=== PATIENT | male | born 1940 | race Caucasian/White ===

== ENCOUNTER 2017-12-08 22:49 | Inpatient (IN) | payer MEDICARE, OTHER ==
[~2017-12-08] VITALS: Ht 177.8 cm; Wt 74.7 kg
[2017-12-08 23:18] LABS: BASOPHILS ABSOLUTE AUTO 0.02 K/mm3 (0.00-0.23); BASOPHILS PERCENT AUTO 0 % (0-2); EOSINOPHILS PERCENT AUTO 1 % (0-6); Hematocrit 41.8 % (37.0-53.0); Hemoglobin 14.3 g/dL (13.5-17.5); IMMATURE GRAN ABSOLUTE AUTO 0.04 K/mm3 (0.00-0.10); IMMATURE GRAN PERCENT AUTO 1 % (0-1); LYMPHOCYTES ABSOLUTE AUTO 1.16 K/mm3 (0.84-5.20); LYMPHOCYTES PERCENT AUTO 14 % (21-46); MONOCYTES ABSOLUTE AUTO 0.92 K/mm3 (0.16-1.47); MONOCYTES PERCENT AUTO 11 % (4-13); Mean Corpuscular HGB 31.6 pg (26.0-34.0); Mean Corpuscular HGB Conc 34.2 g/dL (31.5-36.5); Mean Corpuscular Volume 93 fL (80-100); Mean Platelet Volume 9.3 fL (9.1-12.4); NEUTROPHILS ABSOLUTE AUTO 6.04 K/mm3 (1.96-9.15); NEUTROPHILS PERCENT AUTO 73 % (41-73); Platelet Count 225 K/mm3 (150-400); RDW Coefficient Variation 12.4 % (11.7-14.2); RDW Standard Deviation 42.5 fL (35.1-46.3); Red Blood Cell Count 4.52 M/mm3 (4.30-5.90); White Blood Cell Count 8.28 K/mm3 (4.00-11.30)
[2017-12-08 23:47] LABS: Alanine Aminotransfer (ALT/SGP 28 U/L (12-78); Albumin, Blood 3.5 g/dL (3.4-5.0); Albumin/Globulin Ratio 0.8 (0.8-1.8); Alk Phos 78 U/L (50-136); Anion Gap 7 mmol/L (6-16); Aspartate Aminotrans (AST/SGOT 23 U/L (12-37); Bilirubin, Total 1.3 mg/dL (0.1-1.0); Blood Urea Nitrogen 12 mg/dL (8-24); Bun/Creatinine Ratio 14.7 (12.0-20.0); CO2, Blood 27 mmol/L (21-32); Calcium, Blood 8.8 mg/dL (8.5-10.1); Chloride, Blood 104 mmol/L (98-108); Creatinine, Blood 0.82 mg/dL (0.60-1.20); Globulin, Blood 4.4 g/dL (2.2-4.0); Glomerular Filtration Rate >60 (60-); Glucose, Blood 125 mg/dL (70-99); Potassium, Blood 4.1 mmol/L (3.5-5.5); Sodium, Blood 138 mmol/L (136-145); Total Protein, Blood 7.9 g/dL (6.4-8.2); Troponin I <0.015 ng/mL (0.000-0.040)
[2017-12-10] MEDS ORDERED: ASPI81CH PO (13:45)
== END 2017-12-10 14:16 | disposition home or self-care (01) | DRG 313 ==
LOC: ER 22:49 → PCU 12-09 01:57
PROVIDERS: Emergency Medicine
DX: R07.89 Other chest pain (principal); R94.2 Abnormal results of pulmonary function studies; R94.8 Abnormal results of function studies of other organs and systems; Z87.891 Personal history of nicotine dependence
CPT/HCPCS: 36415; 71046; 78452; 80053; 83880; 84484; 85025; 93005; 93010; 93017; 96374; 96375; 99285; A9500; J0280; J1885; J2270; J2405; J2785; J7030

== ENCOUNTER → 2018-10-26 | Outpatient (CLI) | payer MEDICARE, OTHER ==
[~2018-10-26] MED LIST: ASPI81CH PO
[2018-10-27 15:04] LABS: Stool Occult Bld Immuno 1 Negative (NEGATIVE)
== END | disposition home or self-care (01) ==
LOC: LAB EV 16:18
PROVIDERS: Internal Medicine Gastroenterology
DX: K57.90 Diverticulosis of intestine, part unspecified, without perforation or abscess without bleeding (principal); Z86.010 Personal history of colon polyps
CPT/HCPCS: G0328

== ENCOUNTER → 2018-10-27 | Outpatient (CLI) | payer MEDICARE, OTHER ==
[2018-10-28 14:11] LABS: Stool Occult Bld Immuno 1 Negative (NEGATIVE)
== END | disposition home or self-care (01) ==
LOC: LAB SHORT 09:30 → LAB EV 09:30
PROVIDERS: Internal Medicine Gastroenterology
DX: K57.30 Diverticulosis of large intestine without perforation or abscess without bleeding (principal); Z86.010 Personal history of colon polyps
CPT/HCPCS: 82274

== ENCOUNTER 2018-12-26 08:04 | Day surgery (SDC) | payer MEDICARE, OTHER ==
[~2018-12-26] VITALS: Ht 177.8 cm; Wt 76.4 kg
[~2018-12-26 08:04] MED LIST changes: +Aspirin EC81 MG PO; +Crestor20 MG PO
--- NOTE | 2018-12-26 10:38 | NUR ---
12/26/18 Yuliya Cee NASAL INTUBATION USED FOR CASE.
--- NOTE | 2018-12-26 14:39 | NUR ---
12/26/18 1439 Ana Yates PT RESTING IN BED, DAUGHTER AND AT BEDSIDE. PT C/O OF 6/10 PAIN, MEDICATED PER ORDER. PT TOLERATING ICE CHIPS AND SIPS OF WATER. VSS. REPORT OFF TO [facility] AND [facility].
--- NOTE | 2018-12-26 16:00 | NUR ---
PT TO ROOM 230 FROM [facility]. PT ALERT AND ORIENTED. NADN. FAMILY WITH PT. ORIENTED TO ROOM AND CALL LIGHT. IV INFUSING. DENIES NEED FOR PAIN MEDS AT THIS TIME.
--- NOTE | 2018-12-26 18:21 | NUR ---
report to margret leslie rn in [facility]. dr washington to room. aware of pt tx to [facility]. states he is going there for airway observation due to extensive trauma to lower jaw.
--- NOTE | 2018-12-26 18:44 | NUR ---
PT MOVED TO U 7.
--- NOTE | 2018-12-27 05:43 | NUR ---
SHIFT SUMMARY PT ALERT AND ORIENTED AND INDPENDENT T/O SHIFT. HE HAS SLEPT ALL NIGHT WITHOUT ANY ISSUES. HE WOKE EASILY FOR VITALS, DENIED ANY NEEDS FOR PAIN MEDS AND STATED THAT HIS SURGICAL SITE WAS SORE, BUT NOT INTOLERABLE. PT DENIED ANY UNMET NEEDS, USED HIS CALL LIGHT APPROPRIATELY AND SLEPT T/O SHIFT. PT HAS HIS BED IN THE LOWEST POSITION WITH 2X SIDE RAILS IN PLACE. CALL LIGHT IS WITHIN REACH. PT VITALS CONTINUE TO BE STABLE. HE WILL CONTINUE TO BE MONITORED UNTIL HANDOFF TO DAYSHIFT RN.
--- NOTE | 2018-12-27 09:15 | NUR ---
Assumed Care: Assumed care of pt at approx 0700. VSS. In no apparent sign of distress. VSS. In no apparent sign of distress. Pt is A&Ox4. Calls appropriately and repositions self. See shift assessment for detailed assessment. Some swelling and redness noted under tongue, but no swelling noted to the throat. Pt c/o of some pain to the throat, but denies any need for pain medications at this time. Pt currently resting in bed with call light within reach. Denies any further questions, complaints or requests at this time. Will continue to monitor.
--- NOTE | 2018-12-27 10:40 | NUR ---
Dishcarged at 1014. VSS. In no apparent sign of distress. Pt denies any further questions at time of discharge. Follow-up paul scheduled with Dr. Allison for pt. Pt escorted via wheelchair and accompanied by family.
== END 2018-12-27 10:44 | disposition home or self-care (01) ==
LOC: ORSCSDS 08:04 → SURS 16:00 → PCU 18:13 → ORSCSDS 12-27 10:44
PROVIDERS: Otolaryngology
PROC: 0NBV0ZZ Excision of Left Mandible, Open Approach (ICD-10-PCS; principal; 2018-12-26 09:30)
PROC: 0NBT0ZZ Excision of Right Mandible, Open Approach (ICD-10-PCS; principal; 2018-12-26 09:30)
DX: M27.0 Developmental disorders of jaws (principal); Z85.46 Personal history of malignant neoplasm of prostate; Z87.891 Personal history of nicotine dependence; Z79.82 Long term (current) use of aspirin; Z79.899 Other long term (current) drug therapy; Z28.20 Immunization not carried out because of patient decision for unspecified reason
CPT/HCPCS: J0171; J1100; J2250; J2405; J3010; J7120

== ENCOUNTER 2019-06-19 08:52 | Day surgery (SDC) | payer MEDICARE, OTHER ==
[~2019-06-19] VITALS: Ht 177.8 cm; Wt 73.0 kg
== END 2019-06-19 11:10 | disposition home or self-care (01) ==
LOC: ORSCSDS 08:52
PROVIDERS: Ophthalmology
PROC: 08RJ3JZ Replacement of Right Lens with Synthetic Substitute, Percutaneous Approach (ICD-10-PCS; principal; 2019-06-19 10:30)
DX: H25.11 Age-related nuclear cataract, right eye (principal); H21.81 Floppy iris syndrome; H52.201 Unspecified astigmatism, right eye; I10 Essential (primary) hypertension; Z87.891 Personal history of nicotine dependence; Z79.899 Other long term (current) drug therapy; Z79.82 Long term (current) use of aspirin
CPT/HCPCS: J2001; J2250; J3010; J3301; J7120; V2632

== ENCOUNTER 2023-04-21 07:03 | Day surgery (SDC) | payer MEDICARE, OTHER ==
[2023-04-21] VITALS (11 sets, daily range): BP systolic 121–148; BP diastolic 62–86
[~2023-04-21] VITALS: Ht 172.7 cm; Wt 74.0 kg
[~2023-04-21 07:03] MED LIST changes: +GABA100 PO; +LATA.005SO BOTHEYES; +NAPR500; +Prinivil10 MG PO; +XALATAN2.5 ML BOTHEYES
--- NOTE | 2023-04-21 09:20 | NUR ---
ASSUMED CARE OF PT POST PROCEDURE. PT AWAKE AND ORIENTED, CONVERSING APPROPRIATELY; DENIES PAIN POST PROCEDURE. MONITOR SB 40-50'S, B/P 121/63, SPO2 98% RA, AFEBRILE. R RADIAL SITE NO SWELLING/HEMATOMA, TR BAND IN PLACE; RUE POSITIVE PLEUTH POST TR BAND PLACEMENT.
--- NOTE | 2023-04-21 11:45 | NUR ---
PT AMB TO BATHROOM, SITE UNCHANGED WITH ACTIVITY. PT DRESSED SELF WITHOUT PROBLEM, SITE UNCHANGED. TR BAND REMOVED, CLOTH DOT AND WRIST IMMOBILIZER PLACED; IV REMOVED-CANNULA INTACT.
--- NOTE | 2023-04-21 11:59 | NUR ---
PT RECEIVED DISCHARGE INSTRUCTIONS, MED LIST AND AFTER CARE INSTRUCTIONS; VERBALIZED GOOD UNDERSTANDING. PT LEFT FACILITY VIA W/C, CONDITION STABLE.
== END 2023-04-21 11:59 | disposition home or self-care (01) ==
LOC: MHTC 07:03
DX: I25.10 Atherosclerotic heart disease of native coronary artery without angina pectoris (principal); I10 Essential (primary) hypertension; E78.5 Hyperlipidemia, unspecified; Z85.46 Personal history of malignant neoplasm of prostate; Z87.891 Personal history of nicotine dependence; I08.3 Combined rheumatic disorders of mitral, aortic and tricuspid valves
CPT/HCPCS: 76937; 93454; 99152; 99153; A9270; C1769; C1887; C1894; J1644; J2250; J3010; J7030; J7040; J7050; Q9967

== ENCOUNTER 2025-06-30 07:18 | Day surgery (SDC) | payer OTHER ==
[~2025-06-30] VITALS: Ht 167.6 cm; Wt 74.2 kg
[~2025-06-30 07:18] MED LIST changes: +NS 500 ML IV ONE
[2025-06-30] MEDS ORDERED: CeFAZolin Sodium 2,000 MG VIAL ONE (07:41)
[2025-06-30] MEDS ORDERED: ROSUVASTATIN CA20 MG PO (07:52)
[2025-06-30] MEDS ORDERED: NS 500 ML IV ONE (08:02)
--- NOTE | 2025-06-30 08:02 | NUR ---
06/30/25 0802 Dee Wilkerson TIME OUT PERFORMED AT BEDSIDE WITH DR CLINTON AT 0759 IMMEDIATELY PRIOR TO INJECTION OF 8ML INTO R HAND OF SOLUTION CONSISTING OF 9ML 1% LIDOCAINE W/EPI [id number] AND 1ML 8.4% SODIUM BICARBONATE. PT TOLERATED PROCEDURE WELL.
[2025-06-30] MEDS ORDERED: Midazolam HCl 1MG / ML 2ML Vial ONE (08:29)
[2025-06-30 09:01] VITALS: BP 136/72
--- NOTE | 2025-06-30 09:28 | NUR ---
06/30/25 0928 Shital Jolly PT DENIES ANY PAIN, AND NO NAUSEA. PT'S AND GRANDDAUGHTER AT BEDSIDE, ALL QUESTIONS ANSWERED AND CONCERNS ADDRESSED. PT AND PT'S FAMILY ABSOLUTELY PLEASANT AND APPRECIATIVE OF CARE PROVIDED. PT COLLECTED ALL PERSONAL BELONGINGS. PT ASSISTED TO AND SAFELY TRANSFERED TO PRIVATE VEHICLE.
== END 2025-06-30 09:24 | disposition home or self-care (01) ==
LOC: ORSCSDS 07:18
PROVIDERS: Orthopaedic Surgery
PROC: 0JBG0ZX Excision of Right Lower Arm Subcutaneous Tissue and Fascia, Open Approach, Diagnostic (ICD-10-PCS; 2025-06-30)
PROC: 01N54ZZ Release Median Nerve, Percutaneous Endoscopic Approach (ICD-10-PCS; principal; 2025-06-30 08:45)
DX: G56.01 Carpal tunnel syndrome, right upper limb (principal); I10 Essential (primary) hypertension; E78.00 Pure hypercholesterolemia, unspecified; Z87.891 Personal history of nicotine dependence; Z79.82 Long term (current) use of aspirin; Z79.899 Other long term (current) drug therapy
CPT/HCPCS: 88304; 88313; J0690; J2250; J2704; J7040